=== PATIENT | male | born 1970 | race Two or more races ===

== ENCOUNTER 2021-05-11 19:43 | Emergency (ER) | payer BC, OTHER ==
[~2021-05-11] VITALS: Ht 172.7 cm; Wt 86.2 kg
[2021-05-12 01:30] VITALS: BP 126/79
[2021-05-12] MEDS ORDERED: hydrOXYzine 25 MG TAB or CAP PO ONE (01:30)
== END 2021-05-12 02:04 | disposition home or self-care (01) ==
LOC: ER 19:45
DX: F41.1 Generalized anxiety disorder (principal)